=== PATIENT | male | born 1995 | race Two or more races ===

== ENCOUNTER 2021-07-09 17:45 | Emergency (ER) | payer MEDICAID ==
[2021-07-09] MEDS ORDERED: Sodium Chloride 0.9% 10 ML Syringe FLUSH PRN (18:34)
--- NOTE | 2021-07-09 19:08 | EDM.PDOC ---
ED HPI GENERAL MEDICAL PROBLEM - General Chief Complaint: Gastrointestinal Problem Stated Complaint: FEVER COUGH BLOODY DIARRHEA Time Seen by Provider: 07/09/21 18:00 Source of Information: Reports: Patient History Limitations: Reports: No Limitations - History of Present Illness INITIAL COMMENTS - FREE TEXT/NARRATIVE: 26-year-old male presents to the emergency department with complaints of rectal bleeding, cough and congestion. Patient states that he is noticed that whenever he has a bowel movement after the stool has passed blood then passes into the toilet. He states that moderate amount of blood and then has blood on the paper when he wipes. He states that this has been going on for about 4 months however he has not had time to be seen to have it evaluated due to work. He states that about 3 days ago he developed cough and congestion. He also reports that he has had chills. He denies any nausea or vomiting. He does note abdominal pain to the left lower quadrant. He denies any urinary symptoms. States he is otherwise healthy. He does smoke and vape. He drinks socially. He does not take any prescription medications and does not have a regular doctor. - Related Data Allergies Allergy/AdvReac Type Severity Reaction Status Date / Time No Known Allergies Allergy Verified 07/09/21 18:02 Home Meds: Home Meds . [No Known Home Meds] 07/09/21 [History] Past Medical History Endocrine/Metabolic History: Reports: Obesity/BMI 30+ Social & Family History - Tobacco Use Tobacco Use Status *Q: Current Every Day Tobacco User Years of Tobacco use: 2 Packs/Tins Daily: 0.2 - Caffeine Use Caffeine Use: Reports: Coffee, Energy Drinks, Soda, Tea - Recreational Drug Use Recreational Drug Use: Yes Recreational Drug Type: Reports: Marijuana/Hashish ED ROS GENERAL - Review of Systems Review Of Systems: Comprehensive ROS is negative, except as noted in HPI. ED EXAM, GI/ABD - Physical Exam Exam: See Below Exam Limited By: No Limitations General Appearance: Alert, WD/WN, No Apparent Distress Ears: Normal External Exam, Hearing Grossly Normal Nose: Normal Inspection Throat/Mouth: Normal Inspection, Normal Lips, Normal Voice, No Airway Compromise Head: Atraumatic Neck: Normal Inspection, Supple Respiratory/Chest: No Respiratory Distress, Lungs Clear, Normal Breath Sounds, No Accessory Muscle Use, Chest Non-Tender Cardiovascular: Normal Peripheral Pulses, Regular Rate, Rhythm, No Edema, No Murmur GI/Abdominal Exam: Normal Bowel Sounds, Soft, No Distention, Tender (Left lower quadrant abdominal pain) (Male) Exam: Deferred Rectal (Males) Exam: Normal Exam, Normal Rectal Tone, Prostate Normal, Heme + Stool Back Exam: Normal Inspection Extremities: Normal Inspection Neurological: Alert, Oriented, Normal Cognition Psychiatric: Normal Affect, Normal Mood Skin Exam: Warm, Dry, Intact, Normal Color, No Rash Lymphatic: No Adenopathy Course - Vital Signs Text/Narrative:: As stated above patient presents with a 4-month history of blood noted after having a bowel movement daily. Also reporting respiratory symptoms for the past 3 days. Upon assessment, patient is essentially unremarkable however he does have tenderness noted to the left lower quadrant with palpation. Digital rectal exam was completed and it is occult positive. I have ordered labs to include a CBC, CMP, magnesium level, C-reactive protein, urinalysis with micro and culture if indicated, Covid swab and a CT of the abdomen and pelvis. Last Recorded V/S: Last Vital Signs Temp 97.3 F 07/09/21 17:59 Pulse 86 07/09/21 17:59 Resp 16 07/09/21 17:59 BP 141/79 H 07/09/21 17:59 Pulse Ox 97 07/09/21 17:59 - Orders/Labs/Meds Orders: Active Orders 24 hr Category Date Time Status Abdomen Pelvis w Cont [CT] Stat Exams 07/09/21 19:13 Taken Sodium Chloride 0.9% [Saline Flush] Med 07/09/21 18:34 Active 10 ml FLUSH ASDIRECTED PRN Saline Lock Insert [OM.PC] Stat Oth 07/09/21 18:34 Ordered Medication Orders Sodium Chloride (Sodium Chloride 0.9% 10 Ml Syringe) 10 ml FLUSH ASDIRECTED PRN PRN Reason: Keep Vein Open Last Admin: 07/09/21 19:56 Dose: 10 ml Documented by: HILL Labs: Laboratory Tests 07/09/21 07/09/21 07/09/21 Range/Units 18:39 18:39 18:49 WBC 10.61 H (4.23-9.07) K/mm3 RBC 4.85 (4.63-6.08) M/mm3 Hgb 15.3 (13.7-17.5) gm/dl Hct 44.6 (40.1-51.0) % MCV 92.0 (79.0-92.2) fl MCH 31.5 (25.7-32.2) pg MCHC 34.3 (32.2-35.5) g/dl RDW Std Deviation 41.9 (35.1-43.9) fL Plt Count 207 (163-337) K/mm3 MPV 10.2 (9.4-12.3) fl Neut % (Auto) 72.4 H (34.0-67.9) % Lymph % (Auto) 14.0 L (21.8-53.1) % Armstrong % (Auto) 10.7 (5.3-12.2) % Eos % (Auto) 2.3 (0.8-7.0) Baso % (Auto) 0.3 (0.1-1.2) % Neut # (Auto) 7.69 H (1.78-5.38) K/mm3 Lymph # (Auto) 1.49 (1.32-3.57) K/mm3 Armstrong # (Auto) 1.13 H (0.30-0.82) K/mm3 Eos # (Auto) 0.24 (0.04-0.54) K/mm3 Baso # (Auto) 0.03 (0.01-0.08) K/mm3 Sodium (136-145) mEq/L Potassium (3.5-5.1) mEq/L Chloride (98-107) mEq/L Carbon Dioxide (21-32) mEq/L Anion Gap (5-15) BUN (7-18) mg/dL Creatinine (0.7-1.3) mg/dL Est Cr Clr Drug Dosing mL/min Estimated GFR (MDRD) (>60) mL/min BUN/Creatinine Ratio (14-18) Glucose (70-99) mg/dL Calcium (8.5-10.1) mg/dL Magnesium (1.8-2.4) mg/dL Total Bilirubin (0.2-1.0) mg/dL AST (15-37) U/L ALT (16-63) U/L Alkaline Phosphatase (46-116) U/L C-Reactive Protein (<1.0) mg/dL Total Protein (6.4-8.2) g/dl Albumin (3.4-5.0) g/dl Globulin gm/dL Albumin/Globulin Ratio (1-2) Urine Color Yellow (Yellow) Urine Appearance Clear (Clear) Urine pH 7.0 (5.0-8.0) Ur Specific [place] 1.020 (1.005-1.030) Urine Protein Trace H (Negative) Urine Glucose (UA) Trace H (Negative) Urine Ketones Negative (Negative) Urine Occult Blood Negative (Negative) Urine Nitrite Negative (Negative) Urine Bilirubin Negative (Negative) Urine Urobilinogen 1.0 (0.2-1.0) Ur Leukocyte Esterase Negative (Negative) Urine RBC 0-5 (0-5) /hpf Urine WBC 0-5 (0-5) /hpf Ur Squamous Epith Cells 0-5 (0-5) /hpf Urine Bacteria Occasional (FEW) /hpf Urine Mucus Few (FEW) /hpf SARS-CoV-2 RNA (HUMBERTO) Negative (NEGATIVE) 07/09/21 Range/Units 18:49 WBC (4.23-9.07) K/mm3 RBC (4.63-6.08) M/mm3 Hgb (13.7-17.5) gm/dl Hct (40.1-51.0) % MCV (79.0-92.2) fl MCH (25.7-32.2) pg MCHC (32.2-35.5) g/dl RDW Std Deviation (35.1-43.9) fL Plt Count (163-337) K/mm3 MPV (9.4-12.3) fl Neut % (Auto) (34.0-67.9) % Lymph % (Auto) (21.8-53.1) % Armstrong % (Auto) (5.3-12.2) % Eos % (Auto) (0.8-7.0) Baso % (Auto) (0.1-1.2) % Neut # (Auto) (1.78-5.38) K/mm3 Lymph # (Auto) (1.32-3.57) K/mm3 Armstrong # (Auto) (0.30-0.82) K/mm3 Eos # (Auto) (0.04-0.54) K/mm3 Baso # (Auto) (0.01-0.08) K/mm3 Sodium 139 (136-145) mEq/L Potassium 4.2 (3.5-5.1) mEq/L Chloride 101 (98-107) mEq/L Carbon Dioxide 30 (21-32) mEq/L Anion Gap 12.2 (5-15) BUN 8 (7-18) mg/dL Creatinine 0.9 (0.7-1.3) mg/dL Est Cr Clr Drug Dosing 126.56 mL/min Estimated GFR (MDRD) > 60 (>60) mL/min BUN/Creatinine Ratio 8.9 L (14-18) Glucose 125 H (70-99) mg/dL Calcium 9.3 (8.5-10.1) mg/dL Magnesium 2.2 (1.8-2.4) mg/dL Total Bilirubin 1.2 H (0.2-1.0) mg/dL AST 34 (15-37) U/L ALT 73 H (16-63) U/L Alkaline Phosphatase 91 (46-116) U/L C-Reactive Protein 2.1 H* (<1.0) mg/dL Total Protein 8.3 H (6.4-8.2) g/dl Albumin 4.3 (3.4-5.0) g/dl Globulin 4.0 gm/dL Albumin/Globulin Ratio 1.1 (1-2) Urine Color (Yellow) Urine Appearance (Clear) Urine pH (5.0-8.0) Ur Specific [place] (1.005-1.030) Urine Protein (Negative) Urine Glucose (UA) (Negative) Urine Ketones (Negative) Urine Occult Blood (Negative) Urine Nitrite (Negative) Urine Bilirubin (Negative) Urine Urobilinogen (0.2-1.0) Ur Leukocyte Esterase (Negative) Urine RBC (0-5) /hpf Urine WBC (0-5) /hpf Ur Squamous Epith Cells (0-5) /hpf Urine Bacteria (FEW) /hpf Urine Mucus (FEW) /hpf SARS-CoV-2 RNA (HUMBERTO) (NEGATIVE) Meds: Medications Generic Name Dose Route Start Last Admin Trade Name Freq PRN Reason Stop Dose Admin Sodium Chloride 10 ml 07/09/21 18:34 07/09/21 19:56 Sodium Chloride 0.9% 10 Ml Syringe FLUSH 10 ml ASDIRECTED PRN Administration Keep Vein Open - Re-Assessments/Exams Free Text/Narrative Re-Assessment/Exam: 07/09/21 20:02 Hematology reveals a WBC of 10.61, hemoglobin 15.3, hematocrit 44.6, platelet count 207 Chemistry reveals a sodium of 139, potassium 4.2, chloride 101, carbon dioxide 30, anion gap 12.2, BUN 8, creatinine 0.9, glucose 125, magnesium 2.2, total bilirubin 1.2, AST 34, ALT T 73, alk phos 91, C-reactive protein 2.1 Urinalysis shows a trace of protein and a trace of glucose Patient is Covid negative 07/09/21 20:02 Radiologist impression portable view of the chest: 1. Nothing acute is seen on frontal chest x-ray. 07/09/21 22:[address] of the abdomen and pelvis with contrast: No acute findings. Hepatic steatosis with hepatomegaly. 07/09/21 22:11 Patient will be discharged home with recommendations that he follow-up with surgical services. I did discuss this with the patient and he understands and states that he will schedule a follow-up appointment. Departure - Departure Time of Disposition: 22:12 Disposition: Home, Self-Care 01 Condition: Good Clinical Impression: Rectal bleeding - Discharge Information Instructions: Rectal Bleeding, [id number] Referrals: PCP,Not In Area [Primary Care Provider] - Forms: ED Department Discharge, ED Return to Work/School Form Additional Instructions: You were seen in the emergency department today with complaints of rectal bleeding. Labs were completed which was within normal limits. CT scan of the abdomen was completed which did not show any reason for the rectal bleeding. Your labs are all stable so there is nothing urgent to be treated at this time however I strongly recommended that you follow-up with a surgeon for further evaluation. We do have a surgeon located here at the hospital, Dr. Garsia. You can call to schedule an appointment with him at [phone]. [facility] also has 2 surgeons on staff. You can call [phone] to schedule appointment with one of them. Sepsis Event Note (ED) - Evaluation Sepsis Screening Result: No Definite Risk - Focused Exam Vital Signs: Vital Signs Temp Pulse Resp BP Pulse Ox 07/09/21 17:59 97.3 F 86 16 141/79 H 97 - My Orders Last 24 Hours: My Active Orders 07/09/21 18:34 Sodium Chloride 0.9% [Saline Flush] 10 ml FLUSH ASDIRECTED PRN Saline Lock Insert [OM.PC] Stat 07/09/21 19:13 Abdomen Pelvis w Cont [CT] Stat - Assessment/Plan Last 24 Hours: My Active Orders 07/09/21 18:34 Sodium Chloride 0.9% [Saline Flush] 10 ml FLUSH ASDIRECTED PRN Saline Lock Insert [OM.PC] Stat 07/09/21 19:13 Abdomen Pelvis w Cont [CT] Stat
--- NOTE | 2021-07-09 19:40 | CR ---
Chest: Frontal view of the chest was obtained. Comparison: No prior chest imaging is available. Heart size and mediastinum are normal. Lungs are clear with no acute parenchymal change. No acute osseous abnormality is appreciated. Impression: 1. Nothing acute is seen on frontal chest x-ray. Diagnostic code #1
--- NOTE | 2021-07-10 08:04 | CT ---
CT abdomen and pelvis Technique: Multiple axial sections were obtained from above the dome of the diaphragm inferiorly through the pubic symphysis. Intravenous and oral contrast were utilized. Delayed images were obtained through the bladder. Reconstructed coronal and sagittal images were obtained. Comparison: No prior abdominal imaging is available. Findings: Visualized lung bases show nothing acute. Liver shows fatty infiltration and is slightly enlarged. Spleen size is normal. Adrenal glands show no nodule. Pancreas shows no abnormality. Gallbladder contains no calcified gallstones. Kidneys show symmetric contrast enhancement. Cyst is noted within the mid left kidney measuring 3.2 cm. Delayed images show contrast within the distal ureters and bladder. Abdominal aorta shows no aneurysm. No retroperitoneal adenopathy or mesenteric abnormalities are seen. No pelvic mass or adenopathy is seen. Appendix is seen which is normal in size. Bone window settings were reviewed which appear within normal limits for the patient's age. Impression: 1. Fatty infiltration within a mildly enlarged liver. 2. Cyst within the left kidney. 3. No additional abnormality is seen on CT study of the abdomen and pelvis. Diagnostic code #2 I agree with preliminary report from [facility], finalized on 07/09/21, 10:47 PM CDT, code 1
== END 2021-07-09 22:33 | disposition home or self-care (01) ==
LOC: JD.ED 17:45
DX: K62.5 Hemorrhage of anus and rectum (principal); E66.9 Obesity, unspecified; Z68.32 Body mass index [BMI] 32.0-32.9, adult; Z72.0 Tobacco use; Z20.822 Contact with and (suspected) exposure to COVID-19
CPT/HCPCS: 36415; 71045; 71045-26; 74177; 74177-26; 80053; 81001; 83735; 85025; 86140; 99284; 99284-25; U0002

== ENCOUNTER 2021-07-10 13:24 | Emergency (ER) | payer MEDICAID ==
[2021-07-10] MEDS ORDERED: Albuterol/Ipratropium 3.0-0.5 MG/3 ML Neb Soln NEB PRN (14:09)
[2021-07-10] MEDS ORDERED: Dicyclomine 10 MG Cap PO ONE (14:09)
--- NOTE | 2021-07-10 14:09 | EDM.PDOC ---
ED HPI GENERAL MEDICAL PROBLEM - General Chief Complaint: Gastrointestinal Problem Stated Complaint: FEVER/COUGH AND DIARRHEA WORSE THEN YESTERDAY Time Seen by Provider: 07/10/21 14:09 Source of Information: Reports: Patient History Limitations: Reports: No Limitations - History of Present Illness INITIAL COMMENTS - FREE TEXT/NARRATIVE: 26-year-old male presents to the ED once again after presenting last evening to the ED. He states that this morning he has had 4 loose diarrhea stools. He has a headache and generalized myalgia. He does have a cough and he can feel rattling in his chest. He had a chest x-ray done through the ED last night which I have reviewed and it was normal. He had a negative COVID-19 test last night as well. He did have a CT abdomen and pelvis with oral contrast which is likely the cause of his current diarrhea today. 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 Of note he is afebrile at this time. He has not ate or drank much in the last 2 days due to loss of appetite and nasal congestion. He states food does not seem to taste quite normal. He therefore could have had a false negative Covid test. He denies bringing up any sputum. Onset: Today, Sudden Onset Date: 07/10/21 Onset Time: 07:00 (Has had 4 diarrhea stools this morning.) Duration: Hour(s):, Waxing/Waning Location: Reports: Chest (Treatment paroxysmal rattly sounding cough.), Abdomen (Intermittent abdominal cramping with very little warning that he is going to have a bowel movement I marked urgency. No blood appreciated in the diarrhea stool.) Quality: Reports: Other (Cough with wheezing and diarrhea) Severity: Moderate Improves with: Reports: None Worsens with: Reports: Eating Context: Denies: Activity, Exercise, Lifting, Sick Contact, Trauma, Other Associated Symptoms: Reports: No Other Symptoms, Cough, Loss of Appetite, Other (He is aware that food does not seem to smell or taste is good and does have nasal congestion.). 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 Head Pain Score (Numeric/FACES): 9 - Related Data Allergies Allergy/AdvReac Type Severity Reaction Status Date / Time No Known Allergies Allergy Verified 07/10/21 13:42 Home Meds: Home Meds Dicyclomine [Bentyl] 20 mg PO Q6H PRN #5 tablet 07/10/21 [Rx] Hydrocodone/Chlorphen P-Stirex [Hydrocodone-Chlorphen ER Susp] 5 ml PO Q12H PRN #50 ml 07/10/21 [Rx] Past Medical History HEENT History: Reports: Otitis Media Cardiovascular History: Reports: None Respiratory History: Reports: None Gastrointestinal History: Reports: None Genitourinary History: Reports: None Musculoskeletal History: Reports: None Neurological History: Reports: None Psychiatric History: Reports: None Endocrine/Metabolic History: Reports: Obesity/BMI 30+ Immunologic History: Reports: None Oncologic (Cancer) History: Reports: None Dermatologic History: Reports: None - Infectious Disease History Infectious Disease History: Reports: None - Past Surgical History Head Surgeries/Procedures: Reports: None HEENT Surgical History: Reports: Myringotomy w Tube(s) Social & Family History - Family History Family Medical History: No Pertinent Family History - Tobacco Use Tobacco Use Status *Q: Current Every Day Tobacco User Years of Tobacco use: 2 Packs/Tins Daily: 0.5 - Caffeine Use Caffeine Use: Reports: Energy Drinks - Recreational Drug Use Recreational Drug Use: No - Living Situation & Occupation Living situation: Reports: Single Occupation: Employed ED ROS GENERAL - Review of Systems Review Of Systems: See Below Constitutional: Reports: Malaise, Weakness, Fatigue, Decreased Appetite. Denies: Fever, Chills HEENT: Reports: Throat Pain (Mild sore throat.) Respiratory: Reports: Shortness of Breath, Wheezing, Cough. Denies: Pleuritic Chest Pain, Sputum (Not coughing up any sputum), Hemoptysis, Other Cardiovascular: Reports: No Symptoms Endocrine: Reports: No Symptoms GI/Abdominal: Reports: Diarrhea (4 diarrhea stools this morning. Of note he did have a CT abdomen and pelvis last day with oral contrast.) : Reports: No Symptoms Musculoskeletal: Reports: Muscle Pain (Mild generalized myalgia.) Skin: Reports: No Symptoms Neurological: Reports: No Symptoms Psychiatric: Reports: No Symptoms Hematologic/Lymphatic: Reports: No Symptoms ED EXAM, GI/ABD - Physical Exam Exam: See Below Exam Limited By: No Limitations General Appearance: Alert, WD/WN, No Apparent Distress, Other (Temperature is 36.2 degrees and he does not feel warm to palpation. Heart rate 116 and sinus at the bedside. Respiratory is 20 with O2 sats of 96 to 98% room air. BP 141/79.) Eyes: Bilateral: Normal Appearance (No blepharal pallor or scleral icterus.) Throat/Mouth: Normal Inspection, Normal Lips, Normal Oropharynx, Other (The oropharynx is mildly inflamed without any exudate.) Head: Atraumatic, Normocephalic Neck: Normal Inspection, Supple, Non-Tender, Full Range of Motion. No: Lymphadenopathy (L), Lymphadenopathy (R) Respiratory/Chest: No Accessory Muscle Use, Respiratory Distress, Wheezing. No: Lungs Clear, Normal Breath Sounds, Crackles, Rales, Rhonchi (Mild tachypnea. Wheezing primarily from the left lung field not on the right.) Cardiovascular: Normal Peripheral Pulses, Regular Rate, Rhythm, No Edema, No Ga llop, No Murmur, No Rub GI/Abdominal Exam: Normal Bowel Sounds, Soft, Non-Tender, No Organomegaly, No Abnormal Bruit, No Mass, Pelvis Stable, Other (No surgical scars) Back Exam: Normal Inspection, Full Range of Motion. No: CVA Tenderness (L), CVA Tenderness (R) Extremities: Normal Inspection, Normal Range of Motion, Non-Tender, No Pedal Edema Neurological: Alert, Oriented, CN II-XII Intact, Normal Cognition Psychiatric: Normal Affect, Normal Mood Skin Exam: Warm, Dry, Intact, Normal Color, No Rash Course - Vital Signs Last Recorded V/S: Last Vital Signs Temp 36.2 C 07/10/21 13:45 Pulse 116 H 07/10/21 13:45 Resp 20 07/10/21 13:45 BP 141/79 H 07/10/21 13:45 Pulse Ox 97 07/10/21 14:09 - Orders/Labs/Meds Meds: Medications Discontinued Medications Generic Name Dose Route Start Last Admin Trade Name Freq PRN Reason Stop Dose Admin Albuterol Confirm 07/10/21 14:40 07/10/21 14:44 Albuterol 6.7 Gm Inhaler Administered 07/10/21 14:41 2 puff Dose Administration 6.7 gm INH .STK-MED ONE Albuterol/Ipratropium 3 ml 07/10/21 14:09 07/10/21 14:36 Albuterol/Ipratropium 3.0-0.5 Mg/3 Ml Neb Soln NEB 3 ml Q4H PRN Administration Shortness Of Breath/wheezing Dicyclomine HCl 20 mg 07/10/21 14:09 07/10/21 14:23 Dicyclomine 10 Mg Cap PO 07/10/21 14:10 20 mg ONETIME ONE Administration Dextrose/Lactated Ringer's 1,000 mls @ 999 mls/hr 07/10/21 14:15 07/10/21 14:22 Dextrose 5%-Lactated Ringers IV 999 mls/hr ASDIRECTED KAYLEN Administration - Radiology Interpretation Free Text/Narrative:: 26-year-old male presents to the ED once again within the last 24 hours complaining of worsening cough shortness of breath and wheezing and diarrhea stools x4 this morning. Patient was seen through the ED last night with nasal congestion and cold symptoms and mild sore throat. He also had a cough last evening. His COVID-19 screen was negative. He remains afebrile. He did have a CT abdomen and pelvis done because of reported rectal bleeding. This is likely the cause of his diarrhea stools x4 today. On exam he has mild oropharyngeal inflammation. He is wheezing mildly from his left lung field. Benign abdominal exam. Plan he will receive a DuoNeb treatment. He has sinus tachycardia at the bedside of 116. I will give him a liter of IV fluids D5 LR at open. He will be taught how to use an albuterol metered-dose inhaler by respiratory therapy He will be given Bentyl 20 mg p.o. to help relieve abdominal cramping pain and ease up his diarrhea. - Re-Assessments/Exams Free Text/Narrative Re-Assessment/Exam: 07/10/21 15:20: Patient does have a paroxysmal cough. COVID-19 screen last evening was negative. He still has some signs and symptoms that would suggest COVID-19 illness. Advised that he be rechecked in 2 days if he is not improving. He is wheezing from the left lung field. Chest x-ray reviewed from last night revealed no infiltrates. Plan he will be given a DuoNeb and then have respiratory therapy teach him how to use an albuterol metered-dose inhaler. Bentyl 20 mg p.o. for relief of diarrhea. He was discharged with Bentyl 20 mg to be used every 6 hours. X5 tablets. Albuterol needed dose inhaler 2 puffs e very 3-4 hours as needed. Tussionex cough syrup 5 mils primarily an hour before going to bed at night to suppress cough. 50 mils provided Departure - Departure Time of Disposition: 15:21 Disposition: Home, Self-Care 01 Condition: Fair Clinical Impression: Paroxysmal cough Diarrhea Qualifiers: Diarrhea type: unspecified type Qualified Code(s): R19.7 - Diarrhea, unspecif ied - Discharge Information *PRESCRIPTION DRUG MONITORING PROGRAM REVIEWED*: Not Applicable *COPY OF PRESCRIPTION DRUG MONITORING REPORT IN PATIENT JOELLE: Not Applicable Prescriptions: Dicyclomine [Bentyl] 20 mg PO Q6H PRN #5 tablet PRN Reason: Abdominal cramps/diarrhea Hydrocodone/Chlorphen P-Stirex [Hydrocodone-Chlorphen ER Susp] 5 ml PO Q12H PRN #50 ml PRN Reason: Paroxysmal cough Instructions: Cough, Adult, [id number] Referrals: PCP,None [Primary Care Provider] - Forms: ED Department Discharge, ED Return to Work/School Form Additional Instructions: Evaluation in the emergency room today in regards to cold symptoms with nasal congestion mild sore throat and paroxysmal minimally productive cough with wheezing. I believe diarrhea is secondary to drinking the oral contrast media last evening in the ED for CT of the abdomen and pelvis. You were treated with DuoNeb nebulizer in the ED which has relieved your wheezing and respiratory therapist has taught you how to use an albuterol metered-dose inhaler which you can use 2 puffs every 3-4 hours as necessary for wheezing or shortness of breath. May use Bentyl 20 mg tablet by mouth every 6 hours as necessary for relief of diarrhea or abdominal cramping pain. Next tablet would be due at 1800 hrs. tonight. May use cough syrup Tussionex suspension 5 mils about an hour before planning to go to sleep as it takes an hour to work to help reduce cough during the night. May use it during the day as well i.e. 12 hours apart if needed for severe paroxysmal cough but you should not operate a motor vehicle or machinery while taking the cough syrup. Note given to excuse her from the workplace until Thursday next week. If your symptoms worsen in terms of headache, fever and persisting diarrhea or loss of appetite then I would suggest having a repeat Covid test in 48 hours time.
[2021-07-10] MEDS ORDERED: Dextrose 5%-Lactated Ringers 1,000 ML IV SCH (14:15)
[2021-07-10] MEDS ORDERED: Albuterol 6.7 GM Inhaler INH ONE (14:40)
== END 2021-07-10 15:43 | disposition home or self-care (01) ==
LOC: JD.ED 13:24
DX: R19.7 Diarrhea, unspecified (principal); R05 Cough; E66.9 Obesity, unspecified; Z68.33 Body mass index [BMI] 33.0-33.9, adult; Z72.0 Tobacco use
CPT/HCPCS: 94640; 99284; A9270; J7121; 99283; J7620-GY